=== PATIENT | male | born 1985 | race American Indian/Alaskan Native ===

== ENCOUNTER 2017-04-23 03:44 | Emergency (ER) | payer OTHER ==
--- NOTE | 2017-04-23 06:20 | XRay Report ---
FINAL REPORT EXAM: XR HAND 3+V LT HISTORY: Pain and swelling L hand, s/p injury. TECHNIQUE: Three radiographs of the left hand were obtained. No prior studies are available for comparison. FINDINGS: Note that no true lateral radiograph was obtained. There is an oblique fracture through the proximal-mid shaft of the 4th metacarpal bone. The distal remnant portion of the metacarpal is displaced in the ulnar direction relative to the proximal shaft by approximately 1-2 mm. No definite proximal intra-articular extension is seen. There is no dislocation. No other discrete osseous abnormality is seen. No significant soft tissue abnormality is identified. IMPRESSION: Oblique fracture through the proximal-mid shaft of the 4th metacarpal bone. No dislocation.
[2017-04-23 08:55] VITALS: BP 132/92
[2017-04-23] MEDS ORDERED: MOTRIN PO ONE (10:15)
[2017-04-23] MEDS ORDERED: PERCOCET 5/325 PO ONE (10:15)
--- NOTE | 2017-04-23 10:18 | Emergency Department Report ---
Upper Extremity - HPI Chief Complaint: Extremity Injury, Upper Stated Complaint: LT HAND PAIN Time Seen by Provider: 04/23/17 09:40 Upper Extremity: Left Hand Occurred When: Today Mechanism: Fall Severity: moderate Symptoms: Yes Pain with Movement, Yes Swelling, No Deformity, No Limited Range of Movement, No Numbness, No Weakness, No Bruising/Ecchymosis, No Laceration or Abrasion Other History: 31-year-old male presents with complaint of left hand pain after punching a wall in anger last night. Denies wrist pain denies injury to any other body part. States he has swelling of the lateral aspect of his left hand. Visibly ranging fingers although this is painful to patient. Also incidentally states he has a left-sided nasal lesion for months and is curious what it is. Denies any pain. When drainage or difficulty breathing out of nose. ED Review of Systems ROS: Stated complaint: LT HAND PAIN Other details as noted in HPI Constitutional: denies: chills, fever Eyes: denies: eye pain, eye discharge, vision change ENT: denies: ear pain, throat pain Respiratory: denies: cough, shortness of breath, wheezing Cardiovascular: denies: chest pain, palpitations Endocrine: no symptoms reported Gastrointestinal: denies: abdominal pain, nausea, diarrhea Genitourinary: denies: urgency, dysuria Musculoskeletal: denies: back pain, joint swelling, arthralgia Skin: denies: rash, lesions Neurological: denies: headache, weakness, paresthesias Psychiatric: denies: anxiety, depression Hematological/Lymphatic: denies: easy bleeding, easy bruising ED Past Medical Hx - Past Medical History Previous Medical History?: Yes Additional medical history: Herniated disc - Surgical History Past Surgical History?: No - Social History Smoking Status: Current Every Day Smoker Substance Use Type: Alcohol - Medications Home Medications: Home Medications Medication Instructions Recorded Confirmed Last Taken Type Ibuprofen [Motrin] 800 mg PO Q8H PRN 10/14/13 10/14/13 Unknown History Meloxicam [Mobic] 7.5 mg PO Q12H #30 tablet 10/14/13 Unknown Rx Naproxen 500 mg PO BID PRN #30 tablet 04/23/17 Unknown Rx oxyCODONE /ACETAMINOPHEN [Percocet 1 tab PO Q6HR PRN #12 tablet 04/23/17 Unknown Rx 5/325] Upper Extremity Exam - Exam General: Vital signs noted. No distress. Alert and acting appropriately. Head and Torso: Yes HEENT Abnormality (small left-sided nasal wart nonobstructing at entrance of left nostril), No Neck Tenderness, No Chest/Lungs Abnormality, No Abdominal Tenderness, No Back Tenderness Shoulder Exam: Yes Normal Range of Motion in Shoulder, No Shoulder Tenderness, No Clavicle Tenderness, No Shoulder Deformity, No AC Joint Tenderness Arm Exam: No Arm/Humerus Tenderness, No Arm Deformity Elbow: Yes Normal Range of Motion in Elbow, No Elbow Tenderness, No Elbow Deformity Forearm: No Forearm Tenderness, No Forearm Deformity, No Pain with Pronation, No Pain with Supination Wrist: Yes Normal ROM in Wrist (flexion extension fully intact), No Wrist Tenderness, No Wrist Deformity, No Snuffbox Tenderness (NONE on exam), No Pain with Axial Thumb Compression Hand: Yes Hand Tenderness (palpable tenderness in fourth and fifth metacarpal region), Yes Normal ROM in Digit(s) (patient can flex and extend all his fingers but has difficulty with fourth and fifth fingers with finger extension) , No Hand Deformity, No Digit Tenderness, No Digit(s) Deformity, No Tendon Dysfunction CMS Exam: Yes Normal Distal Pulses (distal capillary refill and pulses intact left upper extremity), Yes Normal Capillary Refill, Yes Normal Distal Sensation , No Broken Skin Hand L/R Back: 1 - Pain and swelling. ED Course Vital Signs 04/23/17 04/23/17 04:46 08:54 Temperature 98.3 F Pulse Rate 65 68 Respiratory 20 20 Rate Blood Pressure 151/101 Blood Pressure 132/92 [Right] O2 Sat by Pulse 100 98 Oximetry ED Medical Decision Making - Medical Decision Making A/P: Boxer's fracture left hand, left nasal wart 1-left hand neurovascularly intact on clinical exam. Range of motion fingers intact. Distal sensation and distal capillary refill intact 2-x-ray shows fourth metacarpal fracture. Patient placed in the left ulnar gutter OCL encompassing area of fracture 3-I advised patient to mitigate any long-term damage or disability to his hand to follow-up as soon as possible with orthopedics. I gave the patient multiple referrals 4- short course of Percocet and naproxen when necessary 5-follow-up with ENT or plastic surgery Critical care attestation.: If time is entered above; I have spent that time in minutes in the direct care of this critically ill patient, excluding procedure time. ED Disposition Clinical Impression: Wart of face Boxers fracture Qualifiers: Encounter type: initial encounter Fracture type: closed Qualified Code(s): S62.339A - Displaced fracture of neck of unspecified metacarpal bone, initial encounter for closed fracture Disposition: TO HOME OR SELFCARE Is pt being admited?: No Does the pt Need Aspirin: No Condition: Stable Instructions: Hand Fracture (ED), Common Wart (ED), Splint Care (ED) Prescriptions: Naproxen 500 mg PO BID PRN #30 tablet PRN Reason: Pain oxyCODONE /ACETAMINOPHEN [Percocet 5/325] 1 tab PO Q6HR PRN #12 tablet PRN Reason: Pain Referrals: SHANNON BARKER MD [Staff Physician] - 3-5 Days [facility] [Provider Group] - 3-5 Days MAGI VIGIL MD [Staff Physician] - 3-5 Days [facility] [Provider Group] - 3-5 Days [facility]NT [facility] [Provider Group] - 3-5 Days Forms: Work/School Release Form(ED) Time of Disposition: 10:19
== END 2017-04-23 10:39 | disposition home or self-care (01) ==
LOC: ED 03:44
DX: S62.335A Displaced fracture of neck of fourth metacarpal bone, left hand, initial encounter for closed fracture (principal); B07.9 Viral wart, unspecified; F17.200 Nicotine dependence, unspecified, uncomplicated; Z88.5 Allergy status to narcotic agent; W22.8XXA Striking against or struck by other objects, initial encounter; Y93.89 Activity, other specified; Y99.8 Other external cause status; Y92.89 Other specified places as the place of occurrence of the external cause
CPT/HCPCS: 99284